=== PATIENT | male | born 1955 | race Asian ===

== ENCOUNTER 2020-10-12 09:56 | Day surgery (SDC) | payer OTHER ==
[2020-10-07 16:26] VITALS: BMI 31.5
[2020-10-12] MEDS ORDERED: PROPOFOL 20 ML ONE (11:39)
[2020-10-12 12:51] VITALS: TEMP 97.8
[2020-10-12 12:53] VITALS: BP 111/77; PULSE 88
== END 2020-10-12 12:40 | disposition home or self-care (01) ==
LOC: FASU-ENDO 09:56
PROVIDERS: ATTEND Internal Medicine Gastroenterology
PROC: 0DB78ZX Excision of Stomach, Pylorus, Via Natural or Artificial Opening Endoscopic, Diagnostic (ICD-10-PCS; 2020-10-12)
PROC: 0DB48ZX Excision of Esophagogastric Junction, Via Natural or Artificial Opening Endoscopic, Diagnostic (ICD-10-PCS; 2020-10-12)
PROC: 0DB98ZX Excision of Duodenum, Via Natural or Artificial Opening Endoscopic, Diagnostic (ICD-10-PCS; principal; 2020-10-12 11:42)
DX: K29.50 Unspecified chronic gastritis without bleeding (principal); K29.80 Duodenitis without bleeding; K26.9 Duodenal ulcer, unspecified as acute or chronic, without hemorrhage or perforation; K22.8 Other specified diseases of esophagus; K22.2 Esophageal obstruction

== ENCOUNTER 2020-12-21 09:52 | Day surgery (SDC) | payer OTHER ==
[2020-12-15 12:58] VITALS: BMI 31.5
[2020-12-21 11:37] VITALS: TEMP 98.2
[2020-12-21 12:27] VITALS: BP 120/76; PULSE 62
== END 2020-12-21 12:29 | disposition home or self-care (01) ==
LOC: FASU-ENDO 09:52
PROVIDERS: ATTEND Internal Medicine Gastroenterology
PROC: 0DB68ZX Excision of Stomach, Via Natural or Artificial Opening Endoscopic, Diagnostic (ICD-10-PCS; 2020-12-21)
PROC: 0DB48ZX Excision of Esophagogastric Junction, Via Natural or Artificial Opening Endoscopic, Diagnostic (ICD-10-PCS; principal; 2020-12-21 11:14)
DX: Z09 Encounter for follow-up examination after completed treatment for conditions other than malignant neoplasm (principal); K29.50 Unspecified chronic gastritis without bleeding; K21.00 Gastro-esophageal reflux disease with esophagitis, without bleeding; Z87.19 Personal history of other diseases of the digestive system

== ENCOUNTER 2021-08-16 10:43 | Day surgery (SDC) | payer OTHER ==
[2021-08-09 14:58] VITALS: BMI 28.7
[2021-08-16 12:56] VITALS: TEMP 98
[2021-08-16 12:58] VITALS: BP 120/70; PULSE 80
== END 2021-08-16 13:26 | disposition home or self-care (01) ==
LOC: FASU-ENDO 10:43
PROVIDERS: ATTEND Internal Medicine Gastroenterology
PROC: 0DJD8ZZ Inspection of Lower Intestinal Tract, Via Natural or Artificial Opening Endoscopic (ICD-10-PCS; principal; 2021-08-16 12:01)
DX: Z12.11 Encounter for screening for malignant neoplasm of colon (principal); K64.1 Second degree hemorrhoids; K64.8 Other hemorrhoids

== ENCOUNTER 2023-11-07 12:20 | Emergency (ER) | payer OTHER ==
[2023-11-07 12:43] VITALS: BMI 23.6
[2023-11-07 14:28] LABS: BASO % 0.2 % (0-2.0); EOS % 0.9 % (0-4.5); HEMATOCRIT 40.3 % (35.4-49); HEMOGLOBIN 13.3 GM/dL (11.7-16.9); LYMPH % 34.7 % (8-40); MCH 30.2 pg (25.7-33.7); MCHC 33.1 g/dl (32.0-35.9); MEAN CELL VOLUME 91.4 fl (80-96); MEAN PLT VOLUME 8.1 fl (7.5-11.1); MONO % 9.1 % (3.8-10.2); NEUT % 55.1 % (42.8-82.8); PLATELET COUNT 112 10^3/uL (134-434); RBC 4.41 M/mm3 (4.00-5.60); RDW 14.1 % (11.9-15.9); WHITE BLOOD COUNT 4.7 K/mm3 (4.0-10.0)
[2023-11-07 14:44] LABS: POTASSIUM 4.1 mmol/L (3.5-5.1)
[2023-11-07 14:47] LABS: ALBUMIN 3.3 g/dl (3.4-5.0); BLOOD UREA NITROGEN 14.8 mg/dL (7-18); MAGNESIUM 2.1 mg/dL (1.8-2.4)
[2023-11-07 14:49] LABS: CREATININE 0.9 mg/dL (0.55-1.3)
[2023-11-07 14:51] LABS: BILIRUBIN,TOTAL 0.8 mg/dL (0.2-1); TOT PROT 6.6 g/dl (6.4-8.2)
[2023-11-07] MEDS: SODIUM CHLORIDE 0.9% 500 ML INFUS.BAG IV ONE (14:58)
[2023-11-07 16:49] VITALS: BP 122/77; PULSE 76; RESP 18; TEMP 98.2
== END 2023-11-07 16:51 | disposition home or self-care (01) ==
LOC: JER 12:20
DX: R42 Dizziness and giddiness (principal)
CPT/HCPCS: 36415; 71046-TC-FY; 80053; 83735; 84484; 85025; 93005; 93010; 99285-25